=== PATIENT | female | born 1955 | race Caucasian/White ===

== ENCOUNTER 2024-07-20 10:02 | Emergency (ER) | payer MEDICARE, SELFPAY ==
[2024-07-20 10:05] VITALS: BP 112/93; PULSE 94; RESP 16; TEMP 35.5; O2SAT 99
--- NOTE | 2024-07-20 10:10 | VDLE_ITS ---
Reason For Study Reason For Study: Right leg swelling RIGHT LEFT GSV is normal. CFV is compressible, spontaneous, phasic, competent, CFV is compressible, spontaneous, phasic, competent and demonstrates normal augmentation. and demonstrates normal augmentation. FV is compressible, spontaneous, phasic, competent and demonstrates normal augmentation. POP V is compressible, spontaneous, phasic, competent and demonstrates normal augmentation. T/P Trunk is compressible. PTV is compressible. RT PerV is compressible. Procedure This is a venous duplex using B-mode, color flow and spectral Doppler. Exam performed in department. A preliminary report was called and/or faxed to [facility]. VL/Venous Duplex US, Unilateral Interpretation Summary Deep veins of the right lower extremity are patent and compressible segmentally . There is no evidence of right lower extremity deep vein thrombosis. Valvular competence appears intact within the p roximal deep venous system on the right . The right great saphenous vein appears patent and compressible segmentally. The left common femoral vein is patent and compressible . Ordering Physician: Liborio Beavers Performed By: Rosa M Barillas RVT
--- NOTE | 2024-07-20 10:16 | ED.VIS.LOWEX ---
HPI History of Present Illness HPI Narrative: 68-year-old female status post right total knee replacement done a week ago at [facility] by Dr. Francisco of orthopedics. Patient is on Xarelto postop. She had a prior DVT 15 years ago after having knee replacement surgery. Was sent in today due to leg swelling to rule out a DVT. Denies other complaints. Denies chest pain or shortness of breath. Chief Complaint: Lower Extremity Injury Informant: patient and spouse/S.O. Occured/Mechanism Mechanism/Context: No injury and No blunt trauma Onset/Context/Timing Onset: Days Timing: Continuous Quality of Pain: Dull and Aching Current Severity: Mild Maximum Severity: Mild Associated Symptoms Associated Symptoms: Negative for Parasthesia or Weakness Narrative Narrative: 68-year-old female status post right knee total replacement sent in for swelling rule out DVT. Prior history of DVT after knee replacement surgery. Currently on Xarelto. Prior similar symptoms: Yes Recent Illness/Hospitalization: Yes PFSH PFSH Home Medications ?Medication ?Instructions ?Recorded ?Last Taken ?Type amlodipine 5 mg tablet 5 mg PO DAILY 07/20/24 07/20/24 History clindamycin HCl 300 mg capsule 300 mg PO TID 07/20/24 07/20/24 History docusate sodium 100 mg capsule 100 mg PO BID PRN constipation 07/20/24 07/20/24 History oxycodone-acetaminophen 5 mg-325 1 tab PO Q4H PRN moderate pain 07/20/24 07/20/24 History mg tablet promethazine 25 mg tablet 25 mg PO Q6H PRN nausea/vomiting 07/20/24 07/20/24 History rivaroxaban 10 mg tablet (Xarelto) 10 mg PO DAILY 07/20/24 07/20/24 History rosuvastatin 5 mg tablet 5 mg PO DAILY 07/20/24 07/20/24 History tramadol 50 mg tablet 50 mg PO Q6H PRN moderate pain 07/20/24 07/20/24 History triamterene 37.5 1 tab PO DAILY 07/20/24 07/20/24 History mg-hydrochlorothiazide 25 mg tablet Allergy/AdvReac Type Severity Reaction Status Date / Time cephalexin Allergy Mild Rash Verified 07/20/24 10:05 enalapril Allergy Mild Rash Verified 07/20/24 10:05 povidone-iodine (From Allergy Mild Rash Verified 07/20/24 10:05 Betadine) ROS ROS ED ROS Narrative Denies recent illness. Constitutional Constitutional ED: Denies chills or fever(s) Eyes Eyes: Denies blurry vision ENT ENT ED: Denies ear pain Cardiovascular Cardiovascular: Denies chest pain Respiratory/Chest Respiratory/Chest: Denies cough or dyspnea Gastrointestinal Gastrointestinal: Denies abdominal pain Genitourinary Genitourinary ED: Denies dysuria or hematuria Musculoskeletal Musculoskeletal: Denies arthralgias Integumentary Denies abscess Neurologic Neurologic: Denies headache(s) Psychiatric Psychiatric: Denies anxiety Endocrine Endocrinology: Denies polydipsia Hematologic/Lymphatic Hematologic/Lymphatic: Denies lymphadenopathy Allergic/Immunologic Allergic/Immunologic ED: Denies mouth swelling, tongue swelling or urticaria EXAM Physical Exam Narrative Exam Narrative: 68-year-old female sitting upright in a chair. present in the room. Vital signs are stable afebrile. No acute distress. Pulse ox 99% on room air no hypoxia. H EENT exam pupils round react to light. Moist mucous membranes. Lungs clear to auscultation bilaterally. Heart regular rhythm rate about 90 no murmur. Chest wall ribs nontender. Abdomen soft nontender. Moving all 4 extremities. Specifically right knee surgical wound right anterior knee surgical wound. Dry and clean. Well-healing. She does have 1+ pitting edema in the right lower extremity. She has mild posterior calf tenderness. Right foot is neurovascularly intact with palpable DP pulse. Dorsi plantarflexion. Normal touch sensation. No signs of infection to the surgical site. Currently no drainage or discharge. No cellulitis. No inguinal lymphadenopathy. Left lower extremity upper extremities are unremarkable. Neurologically she is awake and alert. Const Vital Signs: 07/20/24 10:05 Temperature 96 F L Temperature Source Temporal Pulse Rate 94 Respiratory Rate 16 Blood Pressure 112/93 H Blood Pressure Mean 99 Pulse Ox 99 Oxygen Delivery Method Room Air Positive well nourished and well developed; Negative for obese, cachectic, contractures or unkempt General Appearance ED: well developed and NAD; Negative for unkempt, cachectic or contractures Nutritional Appearance: Negative for cachectic or obese HEENT Reports moist mucous membranes normocephalic and atraumatic Eyes PERRL Neck full ROM and supple Thyroid: Negative for tender Chest Wall inspection of chest normal and palpation of chest normal Resp normal respiratory effort, no retractions and clear to auscultation bilaterally Effort and Inspection: Negative for pain with movement Auscultation: Negative for rales, rhonchi, wheezes or diminished lung sounds Cardio regular rate, regular rhythm, S1 normal heart sound, S2 normal heart sound and no murmurs Rate: Negative for bradycardia or tachycardic GI non-tender, non-distended and no masses Palpation: soft; Negative for tender, guarding or rebound tenderness present Back/Spine no CVA tenderness Extremity normal to inspection and full ROM Extremity Narrative: Except status post right knee replacement anterior approach clear. Dry and clean. No cellulitis. Right calf and lower leg 1+ pitting edema. Calf tenderness. No cords. Right foot neurovascularly intact with normal touch sensation. Dorsi plantarflexion. DP pulse palpable. She has limited range of motion of the knee from the recent surgery and swelling. There is no inguinal lymphadenopathy. General Extremety ED: Yes edema and weight-bearing difficulty; Negative for cyanosis General Extremity: edema and weight-bearing difficulty; Negative for cyanosis Neuro oriented x3 and CN's II-XII intact bilaterally Sensorium / Orientation: alert, oriented to person, oriented to place and oriented to time; Negative for orientation impaired or confused Motor Exam: strength 5/5 throughout Psych mental status grossly normal Appearance: Negative for unkempt Skin no wounds Lesions: no lesions Rashes: no rashes MDM MDM MDM Narrative Medical decision making narrative: 68-year-old status post right knee replacement with swelling. Currently on Xarelto and has a history of factor V Leiden deficiency. Venous study of the right lower extremity was done to evaluate for possible DVT. Right leg venous study showed no DVT. This will be treated as postop swelling. Continue her Xarelto. Ice and elevate the leg. Follow-up with orthopedic physician as needed. Patient doing well on repeat exam at 10:56 AM. We went over her test results. Lab Data Lab results narrative: Right leg venous study showed no DVT. Discharge Plan Triage Chief Complaint: Lower Extremity Injury ED Provider: Liborio Beavers Dx/Rx/DC Orders Clinical Impression: Leg swelling, History of knee joint replacement, History of deep vein thrombosis Prescriptions: No Action clindamycin HCl 300 mg capsule 300 mg PO TID Patient Comments: START DATE- 07/13/24. PT HAS 2 DOSES LEFT amlodipine 5 mg tablet 5 mg PO DAILY oxycodone-acetaminophen 5-325 mg tablet 1 tab PO Q4H PRN (Reason: moderate pain) docusate sodium 100 mg capsule 100 mg PO BID PRN (Reason: constipation) triamterene-hydrochlorothiazid 37.5-25 mg tablet 1 tab PO DAILY rosuvastatin 5 mg tablet 5 mg PO DAILY promethazine 25 mg tablet 25 mg PO Q6H PRN (Reason: nausea/vomiting) tramadol 50 mg tablet 50 mg PO Q6H PRN (Reason: moderate pain) Xarelto 10 mg tablet 10 mg PO DAILY Primary Care Provider: [facility] Doctor,Out of Referrals: [facility] Doctor,Out of [Primary Care Provider] - Activity Restrictions/Additional Instructions: Postop swelling due to the surgery. The ultrasound to the today showed no blood clot. Continue physical therapy. Ice and elevate. Continue your blood thinner. Follow-up with the orthopedic physician as needed. Print Language: Albanian Disposition Disposition: Home, Self Care
== END 2024-07-20 11:02 | disposition home or self-care (01) ==
PROVIDERS: Emergency Provider Emergency Medicine; PCP Family Medicine; Visit Provider Emergency Medicine
DX: M79.89 Other specified soft tissue disorders (principal); Z86.718 Personal history of other venous thrombosis and embolism; Z96.651 Presence of right artificial knee joint
CPT/HCPCS: 93971; 99282